=== PATIENT | female | born 1975 | race Caucasian/White ===

== ENCOUNTER 2017-10-04 10:57 | Emergency (ER) | payer BC ==
[2017-10-04] MEDS ORDERED: Sulfameth/Trimethoprim DS 800-160mg TAB ONE (14:48)
[2017-10-04] MEDS ORDERED: Fluconazole 100 MG TAB ONE ×6 (14:48→14:58)
[2017-10-04 15:21] LABS: Bilirubin Negative (Negative); Blood, Urine Trace (Negative); Clarity Clear (Clear); Glucose, Urine (Dipstick) Negative (Negative); Leukocyte Negative (Negative); Nitrite Negative (Negative); Protein, Urine (Dipstick) Negative (Neg-Trace); Specific Gravity, Urine 1.025 (1.005-1.030); Urobilinogen 0.2 mg/dL (0.2-1.0); pH, Urine 5.5 (5.0-9.0)
[2017-10-04 15:33] LABS: Bacteria/HPF Rare-Few HPF (None Seen); WBC/HPF 0-3 HPF (0-3)
== END 2017-10-04 15:20 | disposition home or self-care (01) ==
LOC: MADERS 10:57
DX: R33.9 Retention of urine, unspecified (principal)
CPT/HCPCS: 51702; 81001; 87086